=== PATIENT | male | born 1985 | race Caucasian/White ===

== ENCOUNTER 2018-04-13 11:18 | Inpatient (IN) | payer OTHER ==
[~2018-04-13] VITALS: Ht 180.3 cm; Wt 86.2 kg
[~2018-04-13 11:18] MED LIST: ERYT400T73 PO; FLU10 PO; IBU800 PO; NO MEDS; OXYC10TA67 PO; PEN250 PO; PRE20 PO; TRAZ-133 PO
[2018-04-13] MEDS ORDERED: CLINDAMYCIN 600 MG/4 ML 600 MG in NS(*) 0.9% 100 ML BAG 100 ML IVPB ONE (11:35)
[2018-04-13] MEDS ORDERED: HYDROCORTISONE 100 MG/2 ML IVP ONE (11:35)
[2018-04-13] MEDS ORDERED: NS(*) 0.9% 1000 ML BAG 1,000 ML IV ONE (11:35)
--- NOTE | 2018-04-13 11:42 | ER Report ---
History and Physical Time Seen By MD: 11:27 Hx. of Stated Complaint: PT REPORTS SORE THROAT FOR 2 DAYS HPI/ROS CHIEF COMPLAINT: Sore throat HISTORY OF PRESENT ILLNESS: Sore throat. Patient states that he's had this for the last 2 days. He states that his toes been so sore that is not been able to eat or drink for the last 3 days. Patient states he is hardly able to open his mouth. Patient states that he has significant amounts of pain to palpation on the left side of the neck, however the right side of the neck is not nearly as painful. He states his nose this tonsils were swollen. He was concerned that he may have a tonsil stones or some thought that. Patient denies any difficulty breathing. He denies any nausea, vomiting or diarrhea. Patient states he is taken some Tylenol for this been no other medications. REVIEW OF SYSTEMS: Respiratory: No cough, no dyspnea. Cardiovascular: No chest pain, no palpitations. Gastrointestinal: No vomiting, no abdominal pain. Musculoskeletal: No back pain. Allergies: Coded Allergies: acetaminophen (Verified Allergy, Intermediate, 04/13/18) Home Meds Discontinued Reported Medications Trazodone Hcl (Trazodone Hcl) 100 Mg Tablet, 100 MG PO QHS, 1 Refill take 1 to 3 tablets not to exceed 3 tablets by mouth at bedtime 1 houh prior to intention to sleep 07/07/12 Fluoxetine Hcl (PROzac (OR EQUIV)) 10 Mg Cap, 1020 MG PO QAM, #30 1 Refill Take 20mg daily in the morning 07/07/12 Past Medical/Surgical History Patient has a past medical history of pneumonia, right elbow fracture, depression. Patient has surgical history of teeth removed, right arm surgery. Patient has a family medical history of cancer. Reviewed Nurses Notes: Yes Hx Smoking: Yes Hx Substance Use Disorder: No Hx Alcohol Use: No Constitutional Vital Sign - Last 24 Hours 04/13/18 04/13/18 04/13/18 04/13/18 11:18 11:21 11:33 11:48 Temp 98.9 Pulse 102 108 82 Resp 18 B/P (MAP) 136/89 136/89 (105) Pulse Ox 96 96 92 O2 Delivery Room Air 04/13/18 04/13/18 04/13/18 04/13/18 11:53 12:00 12:08 12:23 Pulse 85 85 B/P (MAP) 125/74 (91) Pulse Ox 95 93 04/13/18 04/13/18 04/13/18 04/13/18 12:30 12:38 12:43 12:58 Pulse 100 79 70 B/P (MAP) 125/80 (95) Pulse Ox 95 91 91 04/13/18 04/13/18 04/13/18 04/13/18 13:00 13:13 13:28 13:30 Pulse 73 84 B/P (MAP) 124/73 (90) 126/90 (102) Pulse Ox 91 96 04/13/18 13:35 Pulse 84 Pulse Ox 93 Physical Exam General Appearance: The patient is alert, has no immediate need for airway protection and no current signs of toxicity. ENT: Tympanic membranes are pearly-cedillo, auditory canals are patent, mixed mucous membranes are moist. Posterior pharynx the tonsils are swollen, 3+, he has exudates bilaterally and on his uvula. Lymph: Patient has enlarged cervical lymph nodes with tenderness noted on the left side. Respiratory: Chest is non tender, lungs are clear to auscultation. Cardiac: regular rate and rhythm Gastrointestinal: Abdomen is soft and non tender, no masses, bowel sounds normal. Musculoskeletal: Neck: Neck is supple and non tender. Extremities have full range of motion and are non tender. Skin: No rashes or lesions. DIFFERENTIAL DIAGNOSIS: After history and physical exam differential diagnosis was considered for strep throat, mono, peritonsillar abscess. Medical Decision Making Data Points Result Diagram: 04/13/18 1140 04/13/18 1140 Laboratory Hematology Test 04/13/18 11:25 04/13/18 11:40 Group A Streptococcus Screen Negative (NEGATIVE) Red Blood Count 5.23 M/uL (4.00-5.60) Mean Corpuscular Volume 85.1 fL (80.0-96.0) Mean Corpuscular Hemoglobin 29.5 pg (26.0-33.0) Mean Corpuscular Hemoglobin Concent 34.7 g/dL (32.0-36.0) Red Cell Distribution Width 13.8 % (11.5-14.5) Mean Platelet Volume 7.2 fL (7.2-11.1) Neutrophils (%) (Auto) 82.4 % (39.4-72.5) Lymphocytes (%) (Auto) 9.3 % (17.6-49.6) Monocytes (%) (Auto) 7.4 % (4.1-12.4) Eosinophils (%) (Auto) 0.5 % (0.4-6.7) Basophils (%) (Auto) 0.4 % (0.3-1.4) Nucleated RBC Relative Count (auto) 0.0 /100WBC Neutrophils # (Auto) 13.3 K/uL (2.0-7.4) Lymphocytes # (Auto) 1.5 K/uL (1.3-3.6) Monocytes # (Auto) 1.2 K/uL (0.3-1.0) Eosinophils # (Auto) 0.1 K/uL (0.0-0.5) Basophils # (Auto) 0.1 K/uL (0.0-0.1) Nucleated RBC Absolute Count (auto) 0.00 K/uL Peripheral Blood Smear No Y/N Sodium Level 138 mmol/L (137-145) Potassium Level 3.7 mmol/L (3.5-5.0) Chloride Level 99 mmol/L (98-107) Carbon Dioxide Level 26 mmol/L (22-30) Blood Urea Nitrogen 11 mg/dl (9-21) Creatinine 0.80 mg/dl (0.66-1.25) Glomerular Filtration Rate Calc > 60.0 Random Glucose 111 mg/dl (75-110) Calcium Level 9.2 mg/dl (8.4-10.2) Total Bilirubin 1.5 mg/dl (0.2-1.3) Aspartate Amino Transf (AST/SGOT) 26 U/L (0-35) Alanine Aminotransferase (ALT/SGPT) 38 U/L (0-56) Alkaline Phosphatase 115 U/L (0-126) C-Reactive Protein 33.2 mg/dl (<1.0) Total Protein 8.1 g/dl (6.3-8.2) Albumin 4.2 g/dl (3.5-5.0) Monoscreen Negative (NEGATIVE) Chemistry Test 04/13/18 11:25 04/13/18 11:40 Group A Streptococcus Screen Negative (NEGATIVE) White Blood Count 16.2 k/uL (4.5-11.0) Red Blood Count 5.23 M/uL (4.00-5.60) Hemoglobin 15.4 g/dL (14.0-18.0) Hematocrit 44.5 % (42.0-52.0) Mean Corpuscular Volume 85.1 fL (80.0-96.0) Mean Corpuscular Hemoglobin 29.5 pg (26.0-33.0) Mean Corpuscular Hemoglobin Concent 34.7 g/dL (32.0-36.0) Red Cell Distribution Width 13.8 % (11.5-14.5) Platelet Count 354 K/uL (150-450) Mean Platelet Volume 7.2 fL (7.2-11.1) Neutrophils (%) (Auto) 82.4 % (39.4-72.5) Lymphocytes (%) (Auto) 9.3 % (17.6-49.6) Monocytes (%) (Auto) 7.4 % (4.1-12.4) Eosinophils (%) (Auto) 0.5 % (0.4-6.7) Basophils (%) (Auto) 0.4 % (0.3-1.4) Nucleated RBC Relative Count (auto) 0.0 /100WBC Neutrophils # (Auto) 13.3 K/uL (2.0-7.4) Lymphocytes # (Auto) 1.5 K/uL (1.3-3.6) Monocytes # (Auto) 1.2 K/uL (0.3-1.0) Eosinophils # (Auto) 0.1 K/uL (0.0-0.5) Basophils # (Auto) 0.1 K/uL (0.0-0.1) Nucleated RBC Absolute Count (auto) 0.00 K/uL Peripheral Blood Smear No Y/N Glomerular Filtration Rate Calc > 60.0 Calcium Level 9.2 mg/dl (8.4-10.2) Total Bilirubin 1.5 mg/dl (0.2-1.3) Aspartate Amino Transf (AST/SGOT) 26 U/L (0-35) Alanine Aminotransferase (ALT/SGPT) 38 U/L (0-56) Alkaline Phosphatase 115 U/L (0-126) C-Reactive Protein 33.2 mg/dl (<1.0) Total Protein 8.1 g/dl (6.3-8.2) Albumin 4.2 g/dl (3.5-5.0) Monoscreen Negative (NEGATIVE) EKG/Imaging Imaging EXAMINATION: CT neck with IV contrast HISTORY: Sore throat, inability to swallow secretions. COMPARISON: None. TECHNIQUE: Spiral scan was obtained from the hard palate through the upper chest during injection of nonionic iodinated intravenous contrast. Sagittal and coronal reformatted images are also submitted. CONTRAST: 75 mL of IV Isovue-370. One of the following dose optimization techniques was utilized in the performance of this exam: Automated exposure control; adjustment of the mA and/or kV according to the patient's size; or use of an iterative reconstruction technique. Specific details can be referenced in the facility's radiology CT exam operational policy. FINDINGS: Masses/lesions: There is edema of the adenoid and palatine tonsils bilaterally. There are rim-enhancing fluid collections in both palatine tonsils, measuring 2.5 x 1.8 x 3.4 cm on the left, and 2.1 x 1.6 x 2.2 cm on the right. There is edema of the uvula. Airway: Moderate narrowing of the oropharyngeal airway. Vessels: Negative. Musculoskeletal/body wall: Negative. Lymph nodes: There are several enlarged upper cervical lymph nodes bilaterally which homogeneously enhance. The largest lymph node is a left level IIA node measuring 2.4 x 1.8 cm (image 42 series 2). Visualized orbits/brain/paranasal sinuses: Negative. Upper chest: Negative. IMPRESSION: 1. Acute tonsillitis with bilateral intratonsillar abscesses, left greater than right. 2. Moderate narrowing of the oropharyngeal airway. 3. Reactive cervical lymphadenopathy. These findings were discussed with SHAWN MITCHELL at 04/13/2018 12:58 PM. Report Dictated By: Marilee Bermudez MD at 04/13/2018 12:51 PM Report E-Signed By: Marilee Bermudez MD at 04/13/2018 1:00 PM ED Course/Re-evaluation ED Course Patient was admitted to exam room, history and physical were obtained. Differential diagnoses were considered. On examination patient has difficult time opening his mouth, bilateral tonsils are 3+ with exudate. With patient not able to swallow his own saliva, not able to eat or drink for the last 3 days I feel patient needs to have a CT scan of the soft tissues of the neck done. That was done an IV was started, CBC, CMP were done. Patient had an elevated white count of 16,000 with a left shift, CMP was unremarkable. CT scan of the soft tissue neck show a bilateral intratonsillar abscesses. Radiology also noted that he had moderate narrowing of the oropharyngeal airway. As a result of that I did talk with Dr. Xavier, ENT at [facility], who felt patient did not necessitate surgery, recommended admission with treatment of the infection with IV antibiotics and steroids. He recommended Unasyn and Decadron. If there was any concerns to be more than willing to accept the patient for admission down there. I spoke with our hospitalist, Dr. Ag, who we discussed the treatment plan with and agreed to accept the patient for admission. I discussed this with the patient who initially agreed with plan. Patient a few minutes later requested that I come in and speak with him. At that time he states that he woul d like to go home instead of being treated in the hospital. He states that he be able to "choke down some pills". I discussed with patient that if he would like to do that he would need to sign out to his medical advice and he would need to find somebody to prescribe him the antibiotics as I refused to responsible for treating this is now patient. Patient verbalized understanding and agreed with winnie kauffman in the hospital. Decision to Disposition Date: Apr 13, 2018 Decision to Disposition Time: 13:30 Depart Departure Latest Vital Signs Vital Signs Date Time Temp Pulse Resp B/P (MAP) Pulse Ox O2 Delivery O2 Flow Rate FiO2 04/13/18 13:35 84 93 04/13/18 13:30 126/90 (102) 04/13/18 11:18 98.9 18 Room Air Impression: Primary Impression: Tonsillar abscess Condition: Improved Disposition: Admitted from ER New Scripts No Active Prescriptions or Reported SHAWN Singh Apr 13, 2018 11:42
[2018-04-13] MEDS ORDERED: CLINDAMYCIN(*) 600 MG/NS 50 ML 50 ML IVPB ONE (11:45)
[2018-04-13] MEDS ORDERED: IOPAMIDOL 76% 75 ML INFUS BTL 75 ML ONE (11:48)
[2018-04-13 11:56] LABS: PLATELET COUNT, AUTOMATED 354 K/uL (150-450)
--- NOTE | 2018-04-13 13:04 | RADIOLOGY IMAGING REPORT ---
FACILITY: [facility] PATIENT NAME: Yobani Dia : 1985 MR: [id number] V: [id number] EXAM DATE: ORDERING PHYSICIAN: SHAWN MITCHELL TECHNOLOGIST: Location: [facility] Patient: Yobani Dia : 1985 Visit/Account:[id number] Date of Sevice: 04/13/2018 EXAMINATION: CT neck with IV contrast HISTORY: Sore throat, inability to swallow secretions. COMPARISON: None. TECHNIQUE: Spiral scan was obtained from the hard palate through the upper chest during injection o f nonionic iodinated intravenous contrast. Sagittal and coronal reformatted images are also submitte d. CONTRAST: 75 mL of IV Isovue-370. One of the following dose optimization techniques was utilized in the performance of this exam: Autom ated exposure control; adjustment of the mA and/or kV according to the patient's size; or use of an i terative reconstruction technique. Specific details can be referenced in the facility's radiology C T exam operational policy. FINDINGS: Masses/lesions: There is edema of the adenoid and palatine tonsils bilaterally. There are rim-enhan cing fluid collections in both palatine tonsils, measuring 2.5 x 1.8 x 3.4 cm on the left, and 2.1 x 1.6 x 2.2 cm on the right. There is edema of the uvula. Airway: Moderate narrowing of the oropharyngeal airway. Vessels: Negative. Musculoskeletal/body wall: Negative. Lymph nodes: There are several enlarged upper cervical lymph nodes bilaterally which homogeneously en shamir. The largest lymph node is a left level IIA node measuring 2.4 x 1.8 cm (image 42 series 2). Visualized orbits/brain/paranasal sinuses: Negative. Upper chest: Negative. IMPRESSION: 1. Acute tonsillitis with bilateral intratonsillar abscesses, left greater than right. 2. Moderate narrowing of the oropharyngeal airway. 3. Reactive cervical lymphadenopathy. These findings were discussed with SHAWN MITCHELL at 04/13/2018 12:58 PM. Report Dictated By: Marilee Bermudez MD at 04/13/2018 12:51 PM Report E-Signed By: Marilee Bermudez MD at 04/13/2018 1:00 PM WSN:ANTONY
[2018-04-13 14:21] VITALS: BP 113/78
[2018-04-13] MEDS ORDERED: FLUSH 10 ML SYR IVP PRN (15:00)
[2018-04-13] MEDS ORDERED: ONDANSETRON 4 MG/2 ML VIAL IVP PRN (15:00)
[2018-04-13] MEDS ORDERED: INFLUENZA VIRUS VAC 0.5 ML SYR IM ONLY ONE (15:00)
--- NOTE | 2018-04-13 15:34 | History & Physical ---
History of Present Illness Chief Complaint sore throat History of Present Illness 32M presented with 3 days sore throat and difficulty swallowing. Denies fevers or sick contacts but throat has gotten more sore, finally yesterday had difficulty swallowing steak 2/2 pain and swelling. Knew tonsils were swollen and increasing pain and difficulty swallowing prompted him to visit ER. ER contacted ENT stone planer who recommended conservative care with IV Unasyn and dexamethasone. Patient is open to transfer if airway patency is threatened or if surgery becomes necessary. Denies dyspnea, difficulty breathing. No increased work of breathing. Denies PMHx or family medical Hx. History Home Meds Discontinued Reported Medications Trazodone Hcl (Trazodone Hcl) 100 Mg Tablet, 100 MG PO QHS, 1 Refill take 1 to 3 tablets not to exceed 3 tablets by mouth at bedtime 1 houh prior to intention to sleep 07/07/12 Fluoxetine Hcl (PROzac (OR EQUIV)) 10 Mg Cap, 1020 MG PO QAM, #30 1 Refill Take 20mg daily in the morning 07/07/12 Allergies: Coded Allergies: acetaminophen (Verified Allergy, Intermediate, 04/13/18) Hx Smoking: Yes (half a pack a day) Smoking Status: Current: Every Day Smoker Caffeine Intake: Soda Caffeine/Cups Per Day: 1, if that Hx Alcohol Use: No Hx Substance Use Disorder: No Social Drug Use: Former Social Drugs: Marijuana, Heroin, LSD Review of Systems All Systems Reviewed/Normal: Yes, Except as Noted Constitutional: No Fever ENT: Sore Throat (voice changes) Respiratory: No Shortness of Breath, No Cough Gastrointestinal: No Nausea, No Vomiting Exam Vital Signs Vital Signs Date Time Temp Pulse Resp B/P (MAP) Pulse Ox O2 Delivery O2 Flow Rate FiO2 04/13/18 14:28 95 04/13/18 14:21 98.4 80 20 113/78 (90) Room Air General Appearance: Alert, Awake, No Acute Distress, Afebrile Neuro: No Gross deficits Eyes: PERRLA ENT: Other (tonsillar edema, erythema, exudates - uvula + exudate, midline) Neck: Other (palpable tonsils) Cardiovascular: Normal Rhythm & Peripheral Pulses Respiratory: No Respiratory Distress, Clear to Auscultation Chest: No Tenderness GI: Abd Soft and Non-Tender Lymph: Other (+ adenopathy) Musculoskeletal: No Weakness/Pain Extremities: Soft and Non Tender, Warm, Pulses, Perfused; No Edema Integumentary: Skin Intact without Lesion / Mass Psych: Alert & Oriented X3 Medical Decision Making Data Points Result Diagram: 04/13/18 1140 04/13/18 1140 Assessment and Plan Problems: (1) Phlegmonous tonsillitis Assessment & Plan: CT with contrast shows acute tonsillitis with phlegmon and intratonsillar abscess. ENT stone planer recommends conservative therapy with IV Unasyn and dexamethasone. Will monitor CBC and CRP for response. If airway compromised or I&D becomes necessary will intubate and/or transfer for ENT intervention. No evidence of airway obstruction at this time. (2) Tonsillar abscess Assessment & Plan: ENT stone planer recommends conservative therapy, monitor airway for obstruction. (3) Tobacco abuse Assessment & Plan: Declines PRN nicotine replacement at this time. Counseled cessation. Venous Thromboembolism Antithrombotics Is Pt On Any Antithrombotics?: No (early ambulation) Exam Sepsis Risk: Possible Sepsis Risk ELBA MEEHAN DO Apr 13, 2018 15:34
[2018-04-13] MEDS: AMPICILLIN/SULBACT (*) 3 GM VL 3 GM in NS(*) 0.9% 100 ML BAG 100 ML IVPB SCH (18:13)
[2018-04-13] MEDS: DEXAMETHASONE SOD 20MG/5 ML VL IVP SCH (18:14)
[2018-04-13] MEDS ORDERED: NS(*) 0.9% 500 ML BAG 500 ML ONE (18:15)
[2018-04-13 19:14] VITALS: BP 116/70
[2018-04-14] MEDS: DEXAMETHASONE SOD 20MG/5 ML VL IVP SCH ×4 (00:02→18:09)
[2018-04-14] MEDS: AMPICILLIN/SULBACT (*) 3 GM VL 3 GM in NS(*) 0.9% 100 ML BAG 100 ML IVPB SCH ×5 (00:03→23:49)
[2018-04-14 00:17] VITALS: BP 119/75
[2018-04-14 05:35] VITALS: BP 102/68
[2018-04-14 05:50] LABS: PLATELET COUNT, AUTOMATED 325 K/uL (150-450)
[2018-04-14 08:34] VITALS: BP 113/70
[2018-04-14 09:03] VITALS: Ht 180.3 cm; Wt 86.2 kg
--- NOTE | 2018-04-14 09:22 | Hospitalist Progress Note ---
Subjective Progress Notes Subjective He was admitted with intratonsillar abscess. He has no complaints this morning. He reports he is feeling better than yesterday. He is able to eat and drink without difficulty. He had no acute events overnight. Patient Complains of: Cardiovascular: No: Chest Pain Respiratory: No: Shortness of Breath Physical Exam Vital Signs Date Time Temp Pulse Resp B/P (MAP) Pulse Ox O2 Delivery O2 Flow Rate FiO2 04/14/18 08:34 93 04/14/18 08:34 97.8 53 16 113/70 (84) Room Air Intake and Output 04/14/18 07:00 Intake Total 2838 ml Balance 2838 ml Intake Oral 1570 ml IV Total 1268 ml # Voids 1 General Appearance: Alert, Awake, No Acute Distress, Afebrile Neuro: No Gross deficits Cardiovascular: Regular Rate and Rhythm Respiratory: No Respiratory Distress, Clear to Auscultation Psych: Alert & Oriented X3, Appropriate Mood & Affect Result Diagram: 04/14/1852704/14/18527 Assessment and Plan Problems: (1) Phlegmonous tonsillitis Assessment & Plan: CT with contrast shows acute tonsillitis with phlegmon and intratonsillar abscess. ENT quality control auditor recommends conservative therapy with IV Un asyn and dexamethasone. Will monitor CBC and CRP for response. CRP has decreased today from admission. If airway compromised or I&D becomes necessary will intubate and/or transfer for ENT intervention. No evidence of airway obstruction at this time. (2) Tonsillar abscess Assessment & Plan: ENT quality control auditor recommends conservative therapy, monitor airway for obstruction. (3) Tobacco abuse Assessment & Plan: Declines PRN nicotine replacement at this time. Counseled cessation. Exam Sepsis Risk: No Definite Risk OPHELIA SOLIS CARE TRANSITIONS MANAGER Apr 14, 2018 09:22
[2018-04-14 11:02] VITALS: BP 123/93
[2018-04-14 15:51] VITALS: BP 115/78
[2018-04-14 19:34] VITALS: BP 118/76
[2018-04-15 03:02] VITALS: BP 114/77
[2018-04-15 05:31] LABS: PLATELET COUNT, AUTOMATED 393 K/uL (150-450)
[2018-04-15] MEDS: AMPICILLIN/SULBACT (*) 3 GM VL 3 GM in NS(*) 0.9% 100 ML BAG 100 ML IVPB SCH (05:31)
[2018-04-15] MEDS ORDERED: AMOX1TAB9 PO (07:56)
[2018-04-15 07:57] VITALS: BP 111/84
[2018-04-15] MEDS ORDERED: AMOX/CLAV 875 MG TAB PO SCH (08:00)
--- NOTE | 2018-04-15 08:01 | Hospitalist Depart ---
Discharge Summary Reason for Hosp/Final Diag: (1) Phlegmonous tonsillitis Hospital Course & Plan: CT with contrast shows acute tonsillitis with phlegmon and intratonsillar abscess. ENT operations plant attendant recommended conservative therapy with IV Unasyn and dexamethasone. CBC and CRP monitored for response. CRP decreased from 33 to 13. WBC remained elevated secondary to steroids. The patient does not have a PCP and was instructed to f/u with Acute Care if his symptoms did not continue to improve. (2) Tonsillar abscess Hospital Course & Plan: ENT operations plant attendant recommended conservative therapy, monitor airway for obstruction. The patient responded to treatment with IV antibiotics and steroids. (3) Tobacco abuse Hospital Course & Plan: Declined PRN nicotine replacement at this time. Counseled cessation. Departure Weight (Pounds): 190 Result Diagram: 04/15/18 0505 04/15/18 0505 Item Value Date Time Monoscreen Negative 04/13/18 1140 Group A Streptococcus Screen Negative 04/13/18 1125 Calcium Level 9.4 mg/dl 04/15/18 0505 Total Bilirubin 0.3 mg/dl 04/15/18 0505 Aspartate Amino Transf (AST/SGOT) 33 U/L 04/15/18 0505 Alanine Aminotransferase (ALT/SGPT) 67 U/L H 04/15/18 0505 Alkaline Phosphatase 81 U/L 04/15/18 0505 Total Protein 6.1 g/dl L 04/15/18 0505 Albumin 3.1 g/dl L 04/15/18 0505 C-Reactive Protein 33.2 mg/dl H 04/13/18 1140 C-Reactive Protein 23.5 mg/dl H 04/14/18 0528 C-Reactive Protein 13.2 mg/dl H 04/15/18 0505 Condition: Improved Discharge: Home, Self Care Time Spent: < 30 min Discharge Instructions Home Meds Active Scripts Amoxicillin/Potassium Clav (AMOX TR-K CLV 875-125 MG TAB) 1 Each Tablet, 875 MG PO BIDBS, #14 TAB Prov:CEDRIC CUADRA MD 04/15/18 Discontinued Reported Medications Trazodone Hcl (Trazodone Hcl) 100 Mg Tablet, 100 MG PO QHS, 1 Refill take 1 to 3 tablets not to exceed 3 tablets by mouth at bedtime 1 houh prior to intention to sleep 07/07/12 Fluoxetine Hcl (PROzac (OR EQUIV)) 10 Mg Cap, 1020 MG PO QAM, #30 1 Refill Take 20mg daily in the morning 07/07/12 Diet: Regular Activity: As Tolerated Special Instructions: The patient is to follow up with Acute Care if his symptoms do not continue to improve. Venous Thromboembolism Antithrombotics Is Pt On Any Antithrombotics?: No (early ambulation) CEDRIC CUADRA MD Apr 15, 2018 08:01
== END 2018-04-15 12:40 | disposition home or self-care (01) | DRG 153 ==
LOC: ER 11:20 → MED 13:47
PROVIDERS: ADMIT Internal Medicine; ATTEND Internal Medicine
DX: J36 Peritonsillar abscess (principal); F17.210 Nicotine dependence, cigarettes, uncomplicated; F32.9 Major depressive disorder, single episode, unspecified; Z88.8 Allergy status to other drugs, medicaments and biological substances
CPT/HCPCS: 36415; 70491; 82040; 82247; 82310; 82374; 82435; 82565; 82947; 83735; 84075; 84132; 84155; 84295; 84450; 84460; 84520; 85025; 86140; 86308; 87081; 87880; 96365; 96375; 99284; J0295; J1100; J1720; J3490; J7030; J7040; J7050; Q9967

== ENCOUNTER 2018-05-03 10:34 | Emergency (ER) | payer SELFPAY ==
[2018-04-14 09:03] VITALS: Wt 77.1 kg
--- NOTE | 2018-05-03 10:52 | ER Report ---
History and Physical Time Seen By MD: 10:51 Hx. of Stated Complaint: Pt states he was woke this a.m. with throat pain, unable to swallow food, is drinking liquids. States he was txd several weeks ago for same with course of ABX with improvement. HPI/ROS CHIEF COMPLAINT: Sore throat HISTORY OF PRESENT ILLNESS: 32-year-old male comes emergency Department with a complaint of sore throat he also describes halitosis trismus left-sided pain pain with mastication difficulty in swallowing has been recently treated for a s trep throat with by mouth antibiotics says that a little bit better than got significantly worse patient has subjective fever chills and sweats patient has no chest pain shortness of breath nausea vomiting diarrhea REVIEW OF SYSTEMS: Respiratory: No cough, no dyspnea. Cardiovascular: No chest pain, no palpitations. Gastrointestinal: No vomiting, no abdominal pain. Musculoskeletal: No back pain. Remainder of the 14 system rev: Yes Allergies: Coded Allergies: acetaminophen (Verified Allergy, Intermediate, 04/13/18) Home Meds Active Scripts Amoxicillin/Potassium Clav (AMOX TR-K CLV 875-125 MG TAB) 1 Each Tablet, 875 MG PO BIDBS, #14 TAB Prov:CEDRIC CUADRA MD 04/15/18 Reviewed Nurses Notes: Yes Old Medical Records Reviewed: Yes Hx Smoking: Yes (half a pack a day) Smoking Status: Current: Every Day Smoker Hx Substance Use Disorder: No Hx Alcohol Use: No Constitutional Vital Sign - Last 24 Hours 05/03/18 10:38 Temp 98.5 Pulse 78 Resp 20 B/P (MAP) 119/87 Pulse Ox 97 O2 Delivery Room Air Physical Exam General Appearance: The patient is alert, has no immediate need for airway protection and no current signs of toxicity. [ ] Eyes: Pupils equal and round no injection. Respiratory: Chest is non tender, lungs are clear to auscultation. Cardiac: regular rate and rhythm [ ] Gastrointestinal: Abdomen is soft and non tender, no masses, bowel sounds normal. Musculoskeletal: Neck: Neck is supple and non tender. Extremities have full range of motion and are non tender. Skin: No rashes or lesions. Throat examination patient has uvular deviation with some left-sided hyperplasia of the tonsillar area with mild exudative changes patient has submandibular lymphadenopathy difficult to appreciate due to trismus airway is patent DIFFERENTIAL DIAGNOSIS: After history and physical exam differential diagnosis was considered for tonsillitis versus peritonsillar abscess versus pharyngitis Medical Decision Making Data Points Result Diagram: 05/03/18 1058 05/03/18 1058 Laboratory Hematology Test 05/03/18 10:58 Red Blood Count 5.40 M/uL (4.00-5.60) Mean Corpuscular Volume 86.0 fL (80.0-96.0) Mean Corpuscular Hemoglobin 29.6 pg (26.0-33.0) Mean Corpuscular Hemoglobin Concent 34.4 g/dL (32.0-36.0) Red Cell Distribution Width 13.8 % (11.5-14.5) Mean Platelet Volume 7.7 fL (7.2-11.1) Neutrophils (%) (Auto) 83.7 % (39.4-72.5) Lymphocytes (%) (Auto) 9.0 % (17.6-49.6) Monocytes (%) (Auto) 6.5 % (4.1-12.4) Eosinophils (%) (Auto) 0.3 % (0.4-6.7) Basophils (%) (Auto) 0.5 % (0.3-1.4) Nucleated RBC Relative Count (auto) 0.0 /100WBC Neutrophils # (Auto) 10.0 K/uL (2.0-7.4) Lymphocytes # (Auto) 1.1 K/uL (1.3-3.6) Monocytes # (Auto) 0.8 K/uL (0.3-1.0) Eosinophils # (Auto) 0.0 K/uL (0.0-0.5) Basophils # (Auto) 0.1 K/uL (0.0-0.1) Nucleated RBC Absolute Count (auto) 0.00 K/uL Prothrombin Time 13.6 seconds (12.0-14.4) Prothromb Time International Ratio 1.04 Activated Partial Thromboplast Time 33 seconds (23-35) Sodium Level 139 mmol/L (137-145) Potassium Level 3.5 mmol/L (3.5-5.0) Chloride Level 99 mmol/L (98-107) Carbon Dioxide Level 29 mmol/L (22-30) Blood Urea Nitrogen 8 mg/dl (9-21) Creatinine 0.90 mg/dl (0.66-1.25) Glomerular Filtration Rate Calc > 60.0 Random Glucose 84 mg/dl (75-110) Calcium Level 9.0 mg/dl (8.4-10.2) Total Bilirubin 0.9 mg/dl (0.2-1.3) Aspartate Amino Transf (AST/SGOT) 22 U/L (0-35) Alanine Aminotransferase (ALT/SGPT) 34 U/L (0-56) Alkaline Phosphatase 95 U/L (0-126) Total Protein 7.7 g/dl (6.3-8.2) Albumin 3.9 g/dl (3.5-5.0) Chemistry Test 05/03/18 10:58 White Blood Count 11.9 k/uL (4.5-11.0) Red Blood Count 5.40 M/uL (4.00-5.60) Hemoglobin 16.0 g/dL (14.0-18.0) Hematocrit 46.4 % (42.0-52.0) Mean Corpuscular Volume 86.0 fL (80.0-96.0) Mean Corpuscular Hemoglobin 29.6 pg (26.0-33.0) Mean Corpuscular Hemoglobin Concent 34.4 g/dL (32.0-36.0) Red Cell Distribution Width 13.8 % (11.5-14.5) Platelet Count 292 K/uL (150-450) Mean Platelet Volume 7.7 fL (7.2-11.1) Neutrophils (%) (Auto) 83.7 % (39.4-72.5) Lymphocytes (%) (Auto) 9.0 % (17.6-49.6) Monocytes (%) (Auto) 6.5 % (4.1-12.4) Eosinophils (%) (Auto) 0.3 % (0.4-6.7) Basophils (%) (Auto) 0.5 % (0.3-1.4) Nucleated RBC Relative Count (auto) 0.0 /100WBC Neutrophils # (Auto) 10.0 K/uL (2.0-7.4) Lymphocytes # (Auto) 1.1 K/uL (1.3-3.6) Monocytes # (Auto) 0.8 K/uL (0.3-1.0) Eosinophils # (Auto) 0.0 K/uL (0.0-0.5) Basophils # (Auto) 0.1 K/uL (0.0-0.1) Nucleated RBC Absolute Count (auto) 0.00 K/uL Prothrombin Time 13.6 seconds (12.0-14.4) Prothromb Time International Ratio 1.04 Activated Partial Thromboplast Time 33 seconds (23-35) Glomerular Filtration Rate Calc > 60.0 Calcium Level 9.0 mg/dl (8.4-10.2) Total Bilirubin 0.9 mg/dl (0.2-1.3) Aspartate Amino Transf (AST/SGOT) 22 U/L (0-35) Alanine Aminotransferase (ALT/SGPT) 34 U/L (0-56) Alkaline Phosphatase 95 U/L (0-126) Total Protein 7.7 g/dl (6.3-8.2) Albumin 3.9 g/dl (3.5-5.0) Coagulation Test 05/03/18 10:58 Prothrombin Time 13.6 seconds Prothromb Time International Ratio 1.04 Activated Partial Thromboplast Time 33 seconds ED Course/Re-evaluation ED Course ED clinical course patient is a 32-year-old male with a large peritonsillar abscess be transferred to [facility] [place] ER to ER transfer for ENT dependent therapy Decision to Disposition Date: May 03, 2018 Decision to Disposition Time: 12:13 Depart Departure Latest Vital Signs Vital Signs Date Time Temp Pulse Resp B/P (MAP) Pulse Ox O2 Delivery O2 Flow Rate FiO2 05/03/18 10:38 98.5 78 20 119/87 97 Room Air Impression: Primary Impression: Tonsillar abscess Condition: Improved Disposition: XFER TO [facility] Patient Instructions: Peritonsillar Abscess (DC) ROLLY TOBIAS MD May 03, 2018 10:52
[2018-05-03] MEDS ORDERED: KETOROLAC 30 MG/ML VIAL IVP ONE (11:05)
[2018-05-03] MEDS ORDERED: IOPAMIDOL 76% 75 ML INFUS BTL 75 ML ONE (11:07)
[2018-05-03 11:12] LABS: PLATELET COUNT, AUTOMATED 292 K/uL (150-450)
[2018-05-03 11:17] LABS: INR 1.04
--- NOTE | 2018-05-03 11:45 | RADIOLOGY IMAGING REPORT ---
FACILITY: [facility] PATIENT NAME: Yobani Dia : 1985 MR: [id number] V: [id number] EXAM DATE: ORDERING PHYSICIAN: ROLLY TOBIAS TECHNOLOGIST: Location: [facility] Patient: Yobani Dia : 1985 Visit/Account:[id number] Date of Sevice: 05/03/2018 EXAMINATION: CT neck with IV contrast HISTORY: Tonsil pain. Recent bilateral intratonsillar abscess is. COMPARISON: CT neck from 04/13/2018. TECHNIQUE: Spiral scan was obtained from the hard palate through the upper chest during injection o f nonionic iodinated intravenous contrast. Sagittal and coronal reformatted images are also submitte d. CONTRAST: 75 mL of IV [id number]. One of the following dose optimization techniques was utilized in the performance of this exam: Autom ated exposure control; adjustment of the mA and/or kV according to the patient's size; or use of an i terative reconstruction technique. Specific details can be referenced in the facility's radiology C T exam operational policy. FINDINGS: Masses/lesions: There is persistent edema and enlargement of the left palatine tonsil. There is a t hick-walled, rim-enhancing fluid collection which is increased in size, measuring 2.9 x 2.6 x 3.8 cm, increased from 2.5 x 1.8 x 3.4 cm. The right palatine tonsil abscess has resolved. There is less e glo of the right palatine tonsil and adenoids. Airway: Mild residual narrowing of the oropharyngeal airway, slightly improved. Vessels: Negative. Musculoskeletal/body wall: Negative. Lymph nodes: Enlarged, reactive bilateral upper cervical lymph nodes are similar to previous exam. Visualized orbits/brain/paranasal sinuses: Negative. Upper chest: Negative. IMPRESSION: 1. Acute tonsillitis with increase in size of a left intratonsillar abscess. Right intratonsillar a bscess has resolved. 2. Mild narrowing of the oropharyngeal airway is improved from previous exam. 3. Reactive cervical lymphadenopathy is unchanged. These findings were discussed with ROLLY TOBIAS at 05/03/2018 11:40 AM. Report Dictated By: Marilee Bermudez MD at 05/03/2018 11:35 AM Report E-Signed By: Marilee Bermudez MD at 05/03/2018 11:41 AM WSN:[id number]
[2018-05-03 12:30] VITALS: BP 116/81
== END 2018-05-03 13:00 | disposition short-term general hospital (02) ==
LOC: ER 10:47
DX: J36 Peritonsillar abscess (principal)
CPT/HCPCS: 70491; 85025; 85610; 85730; 99284; Q9967; 82040; 82247; 82310; 82374; 82435; 82565; 82947; 84075; 84132; 84155; 84295; 84450; 84460; 84520

== ENCOUNTER → 2018-05-03 | Outpatient (CLI) | payer SELFPAY ==
[2018-04-14 09:03] VITALS: BMI 26.5
[~2018-05-03] MED LIST changes: +AMOX1TAB9 PO
== END ==
LOC: AMB 12:45
PROVIDERS: ATTEND Nurse Practitioner
DX: J36 Peritonsillar abscess (principal)
CPT/HCPCS: A0425; A0427